=== PATIENT | male | born 1970 | race Caucasian/White ===

== ENCOUNTER 2020-12-21 21:00 | Emergency (ER) | payer BC, SELFPAY ==
[2020-12-21 21:05] VITALS: BP 97/60; PULSE 104; RESP 18; TEMP 36.4; O2SAT 97
--- NOTE | 2020-12-21 21:42 | ED.ANIMALBIT ---
HPI - Animal Bite General Chief Complaint: Animal Bite Stated Complaint: dog bit to elizabeth arms Time Seen by Provider: 12/21/20 21:27 Source: patient Mode of arrival: ambulatory Limitations: no limitations History of Present Illness HPI narrative: This is a 50-year-old male that presents to the emergency department for dog bite to his hands and forearms. Reports his dogs were fighting and he attempted to break it up. He sustained several superficial abrasions and lacerations to the hands and forearms. His dogs are up-to-date on vaccinations. He does not think that he is up-to-date on his tetanus vaccine. Denies decreased range of motion or numbness. Related Data Allergies Allergy/AdvReac Type Severity Reaction Status Date / Time NKDA Allergy Mild Other Uncoded 12/21/20 21:58 Review of Systems Review of Systems: CONSTITUTIONAL: Denies fever SKIN: Reports lacerations MUSCULOSKELETAL: Denies joint pain, or myalgia. NEUROLOGIC: Denies numbness All systems reviewed & are unremarkable except as noted in HPI and below PMFSH Past Medical History Medical History (Updated 12/21/20 @ 22:03 by Charity Thomas PA-C) History of spinal stenosis Social History Social History (Updated 12/21/20 @ 21:44 by Charity Thomas PA-C) Smoking status: Current every day smoker Exam Narrative: GENERAL: Well-appearing, well-nourished, and in no acute distress. HEAD: Normocephalic, atraumatic. EYES: EOMI. EXTREMITIES: Normal range of motion. No edema or obvious deformity. Normal radial pulses. Normal sensation. Several superficial abrasions to the bilateral forearms and hands. Several small puncture wounds to the hands SKIN: Warm, dry, no rash. NEURO: No focal deficits. Alert and oriented x3. PSYCH: Normal mood and affect Course Vital Signs Vital signs: Vital Signs Temperature 97.6 F 12/21/20 21:05 Pulse Rate 104 H 12/21/20 21:05 Respiratory Rate 18 12/21/20 21:05 Blood Pressure 97/60 L 12/21/20 21:05 Pulse Oximetry 97 12/21/20 21:05 Temperature 97.6 F 12/21/20 21:05 Pulse Rate 104 H 12/21/20 21:05 Respiratory Rate 18 12/21/20 21:05 Blood Pressure 97/60 L 12/21/20 21:05 Pulse Oximetry 97 12/21/20 21:05 Procedures Laceration Laceration 1: Date: 12/21/20 Time: 22:03 Site: hand Side (If applicable): left and right Pre-repair: irrigated extensively ====== Skin Level ====== ====== Subcutaneous Layer ====== ====== Muscle Layer ====== ====== Tendon Layer ====== Dressing: Superficial abrasions were cleansed and covered with antibiotic ointment and bandages MDM - Animal Bite MDM Narrative Medical decision making narrative: Patient presents to the emergency department for superficial abrasions and small puncture wounds to the hands sustained after trying to break up his dogs fighting. His dogs are up-to-date on vaccinations. Patient was updated on his tetanus vaccine. His wounds were irrigated and covered with bandages. He was educated on wound care. He will be started on oral antibiotics. He is to follow-up with primary care doctor. He was given warnings to return to the ER Critical Care Time Critical Care Time Critical Care Time: No Discharge Plan Discharge Clinical Impression: Dog bite Qualifiers: Encounter type: initial encounter Qualified Code(s): W54.0XXA - Bitten by dog, initial encounter Patient Disposition: Home, Self-Care Condition: Stable Instructions: Antibiotic Form, Animal Bite (ED) Additional Instructions: Return to the emergency department if you experience fever, redness or swelling of your wound, abnormal drainage from your wound, or any other symptoms that are concerning to you. Apply antibiotic ointment daily. Do not soak the wound. Clean with mild soap and water daily. Take oral antibiotic as prescribed Follow-up with your primary care doctor for wound check Prescriptions: New amoxi
[2020-12-21] MEDS: TETANUS,DIPHTHERIA,AC PERTUSSIS ADULT (0.5 ML) BOOSTRIX IM (21:57)
[2020-12-21] MEDS: AMOXICILLIN/CLAVULANATE K 875-125 MG TAB 1 TABLET PO (21:57)
[2020-12-21 22:33] VITALS: BP 106/66; PULSE 79; RESP 18; O2SAT 100
== END 2020-12-21 22:39 | disposition home or self-care (01) ==
LOC: ANHED 22:37
PROVIDERS: Emergency Provider Emergency Medicine; PCP Family Medicine Sports Medicine
DX: S61.452A Open bite of left hand, initial encounter (principal); S61.451A Open bite of right hand, initial encounter; S50.812A Abrasion of left forearm, initial encounter; S50.811A Abrasion of right forearm, initial encounter; Z23 Encounter for immunization; F17.200 Nicotine dependence, unspecified, uncomplicated; W54.0XXA Bitten by dog, initial encounter
CPT/HCPCS: 90471; 90715; 99283; A9270

== ENCOUNTER 2021-12-03 09:20 | Outpatient (CLI) | payer BC, SELFPAY ==
--- NOTE | 2021-12-03 | ECG_ITS ---
Measurements Intervals [place] Rate: 72 P: 31 OK: 128 QRS: 70 QRSD: 110 T: 54 QT: 372 QTc: 410 Interpretive Statements SINUS RHYTHM NORMAL ECG NO PREVIOUS ECG AVAILABLE FOR COMPARISON Electronically Signed On 12-03-2021 14:10:10 CDT by Daren Teran M.D.
[2021-12-03 09:45] LABS: Basophils Absolute Auto 0.1 K/mm3 (0.0-0.1); Basophils Percent Auto 1.2 % (0.2-1.2); Eosinophils Absolute Auto 0.3 K/mm3 (0-0.3); Eosinophils Percent Auto 3.3 % (0-4.4); Hematocrit 48.2 % (42.0-52.0); Hemoglobin 16.2 g/dL (14.0-18.0); Immature Granulocyte Absolute 0.02 K/mm3 (0.00-0.031); Immature Granulocyte Percent A 0.3 % (0-0.5); Lymphocytes Absolute Auto 2.81 K/mm3 (0.9-3.2); Lymphocytes Percent Auto 37.6 % (18.3-44.2); Mean Corpuscular HGB Conc 33.6 g/dl (32-36); Mean Corpuscular Hemoglobin 29.3 pg (26-34); Mean Corpuscular Volume 87.2 fl (80-100); Mean Platelet Volume 9.5 fl (7.4-10.4); Monocytes Absolute Auto 0.7 K/mm3 (0.1-0.6); Monocytes Percent Auto 8.8 % (2.6-8.5); Neutrophils Absolute Auto 3.7 K/mm3 (1.3-6.7); Neutrophils Percent Auto 48.8 % (45.5-73.1); Platelet Count Result 300 k/mm3 (150-375); Red Blood Count 5.53 M/mm3 (4.6-6.20); Red Cell Distribution Width 13.7 % (11.5-14.5); White Blood Count 7.5 K/mm3 (4.5-10.0)
[2021-12-03 09:53] LABS: Add Urine Microscopic? YES; Appearance Urine Clear (Clear); Bilirubin Urine Negative (Negative); Blood Urine 1+ (Negative); Color Urine Yellow (Yellow); Glucose Urine UA Negative (Negative); Ketones Urine Negative (Negative); Leukocyte Esterase Ur Negative LEU/UL (Negative); Mucus Urine Few /lpf; Nitrate Urine Negative (Negative); Protein Urine Negative (Negative); RBC Urine 0-2 /hpf (0-2); Specific Grav Ur 1.025 (1.001-1.035); Squamous Epithelial Cell Urine Rare /hpf (Few); Urobilinogen Urine Negative mg/dL (<2.0); WBC Urine 0-3 /hpf
[2021-12-03 09:53] LABS: Anion Gap 8 mmol/L (8-16); Blood Urea Nitrogen 20 mg/dL (9-20); Calcium 9.5 mg/dL (8.4-10.2); Carbon Dioxide 26 mmol/L (22-30); Chloride 105 mmol/L (98-107); Estimated Glomerular Filt Rate > 60; Glucose 105 mg/dL (65-110); Potassium 4.5 mmol/L (3.4-5.0); Sodium 139 mmol/L (137-145)
[2021-12-03 09:55] LABS: INR 1.1; Prothrombin Time 13.3 Seconds (11.1-14.7)
[2021-12-03 09:56] LABS: Partial Thromboplastin Time 31.1 SECONDS (22.3-36.8)
[2021-12-03 12:14] LABS: Vitamin D 25 Hydroxy 37.9 ng/mL
== END 2021-12-03 09:21 | disposition home or self-care (01) ==
PROVIDERS: PCP Family Medicine Sports Medicine; Visit Provider Family Medicine Sports Medicine
DX: Z01.818 Encounter for other preprocedural examination (principal); I10 Essential (primary) hypertension; M50.20 Other cervical disc displacement, unspecified cervical region
CPT/HCPCS: 36415; 80048; 81001; 82306; 85025; 85610; 85730; 93005

== ENCOUNTER 2023-08-06 08:13 | Outpatient (CLI) | payer BC, SELFPAY ==
--- NOTE | ~2023-08-06 | MR_ITS ---
MR cervical spine wo con Ordering provider: Yajaira Reyes MD History: 53 years Male with . M50.90 - Cervical disc disorder, unspecified, unspecified... . Comparison: None. Technique: MRI cervical spine without contrast. FINDINGS: CERVICAL SPINAL CORD/CRANIAL CERVICAL JUNCTION: Normal in signal and caliber. CERVICAL VERTEBRAL BODIES: Normal height and alignment. Normal marrow signal. Postoperative changes seen at the level of C4-C5 and C5-C6. DISK SPACES: Normal. C2-C3: No stenosis. C3-C4: No stenosis. C4-C5: No stenosis. Narrowing of the foramina more on the right side with nerve root compression. C5-C6: No stenosis. Bilateral narrowing of the foramina with root compression. C6-C7: No stenosis. Diffuse disc bulge with annulus tear. Mild narrowing of the right intervertebral foramen. No definite root compression. C7-T1: No stenosis. VISUALIZED PARASPINOUS SOFT TISSUES: Normal. IMPRESSION: 1. No acute osseous abnormality. 2. Postoperative changes at the levels of C4-C5 and C5-C6. 3. Diffuse disc bulge with annulus tear at the level of C6-C7. 4. Bilateral narrowing of the foramina at the levels of C4-C5 and C5-C6. Reviewed, dictated and finalized at location A.
--- NOTE | ~2023-08-06 | XR_ITS ---
XR shoulder LT min 2V Ordering provider: Yajaira Reyes MD History: . M25.519 - Pain in unspecified shoulder . Comparison: None. FINDINGS: BONES: No acute fracture or dislocation. JOINT SPACES: The acromioclavicular joint is normal. The glenohumeral joint is normal. SOFT TISSUES: Normal. IMPRESSION: No acute osseous abnormality left shoulder. Reviewed, dictated and finalized at location A.
== END 2023-08-06 08:14 ==
LOC: MICIMG 08:14
PROVIDERS: PCP Family Medicine; Visit Provider Family Medicine
DX: M50.90 Cervical disc disorder, unspecified, unspecified cervical region (principal); M25.512 Pain in left shoulder; M50.20 Other cervical disc displacement, unspecified cervical region
CPT/HCPCS: 72141; 73030